=== PATIENT | female | born 1970 | race Caucasian/White ===

== ENCOUNTER → 2017-04-22 | Outpatient (CLI) | payer OTHER ==
[~2017-04-22] MED LIST: KEPPRA 500 MG500 MG PO; PHENERGAN 25MG.25 M1 PO
--- NOTE | 2017-04-22 14:29 | RADIOLOGY REPORT PS360 ---
KNEE-3 VIEWS-RT HISTORY: RT KNEE PAIN ORDERING PHYSICIAN: JOHNATHAN AYALA PATIENT AGE: 46 years COMPARISON: None FINDINGS: No fracture or dislocation. No lytic or blastic change. Normal mineralization. No significant arthritic changes evident. No other significant findings IMPRESSION: Negative Knee
== END ==
LOC: RAD 13:35
DX: M25.561 Pain in right knee (principal)